=== PATIENT | female | born 1945 | race Two or more races ===

== ENCOUNTER 2025-05-10 12:42 | Emergency (ER) | payer OTHER ==
[~2025-05-10] VITALS: Ht 152.4 cm; Wt 79.4 kg
[2025-05-10 13:19] VITALS: BP 129/80; O2SAT 98
[2025-05-10] MEDS ORDERED: HUMALOG100 UNIT/2 (13:22)
[2025-05-10] MEDS ORDERED: LANTUS SOL100 UNIT/1 SQ (13:22)
[2025-05-10] MEDS ORDERED: ATORVALIQ20 MG/5 ML PO (13:22)
[2025-05-10] MEDS ORDERED: LOSARTAN POTASS25 MG PO (13:23)
[2025-05-10] MEDS ORDERED: AMLODIPINE-OLM1 EAC2 PO (13:23)
[2025-05-10] MEDS ORDERED: CARVEDILOL ER40 MG PO (13:23)
[2025-05-10] MEDS ORDERED: LEVO-T50 MCG PO (13:23)
[2025-05-10] MEDS ORDERED: CHILDREN'S ASPI81 MG PO (13:23)
[2025-05-10] MEDS ORDERED: ORPHENADRINE CITRATE 30 MG/ML AMPUL IM ONE (14:00)
[2025-05-10] MEDS ORDERED: ORPHENADRINE CITRATE 30 MG/ML AMPUL ONE (14:10)
[2025-05-10 14:35] LABS: BASO % 0.3 % (0.1-1.2); EOS # 0.20 (0.04-0.54); EOS % 2.2 % (0.7-7.0); LYMPH # 1.33 (1.18-3.74); LYMPH % 14.5 % (19.3-53.1); MEAN PLATELET VOLUME 10.00 fl (9.4-12.4); MONO # 0.81 (0.24-0.82); MONO % 8.9 % (4.7-12.5); NEUT # 6.67 (1.56-6.13); NEUT % 72.9 % (34.0-71.1); RED CELL DISTRIBUTION WIDTH 13.6 % (11.6-14.4)
[2025-05-10 14:59] LABS: INR 1.02
[2025-05-10 15:50] LABS: ALT/SGPT 17.0 U/L (12-78); AST/SGOT 16.0 U/L (15-37); BILIRUBIN TOTAL 0.31 mg/dL (0.3-1.2); BUN CREA RATIO 27.0 (7.0-25.0); CREATININE SERUM 0.62 mg/dL (0.55-1.02); GFR 92.85; GLOBULINA 3.5 G/DL (2.4-3.5); GLUCOSE FASTING 170.0 mg/dL (65-100); OSMOLALITY SERUM 283.0 MOSM/KG (275-295)
[2025-05-10 16:37] LABS: URINE APPEARANCE Clear; URINE BILIRRUBIN Negative (NEGATIVE); URINE BLOOD Negative; URINE COLOR Yellow; URINE GLUCOSE Negative (NEGATIVE); URINE KETONE Negative (NEGATIVE); URINE LEUKOCYTE Moderate; URINE NITRATE Negative; URINE PROTEIN Negative (NEGATIVE); URINE UROBILINOGEN 1.0 E.U./dl
[2025-05-10 16:40] LABS: URINE BACTERIA 38.8 uL (0.0-1933); URINE EPITHELIAL CELLS 6.7 uL (0.0-38.8); URINE WBC 29.1 uL (0.0-23.2)
[2025-05-10] MEDS ORDERED: 0.9 % SODIUM CHLORIDE 1,000 ML IV STA (16:43)
[2025-05-10 16:48] LABS: URINE CAST 0.00 uL (0.0-1.40); URINE RBC 1.2 uL (0.0-20.8)
[2025-05-11] MEDS ORDERED: NORFLEX100MG PO (00:14)
[2025-05-11] MEDS ORDERED: TYLENOL ARTHRI650 MG PO (00:14)
== END 2025-05-11 00:42 | disposition home or self-care (01) ==
LOC: ER 12:42 → EDBD 12:42 → ER 13:16
PROVIDERS: General Practice
DX: C64.9 Malignant neoplasm of unspecified kidney, except renal pelvis (principal); G89.11 Acute pain due to trauma; R07.89 Other chest pain; I10 Essential (primary) hypertension; E03.8 Other specified hypothyroidism; E11.9 Type 2 diabetes mellitus without complications; Z79.4 Long term (current) use of insulin; Z88.0 Allergy status to penicillin
CPT/HCPCS: 36415; 71250; 96372; 99284; J2360